=== PATIENT | female | born 1990 | race Caucasian/White ===

== ENCOUNTER 2021-07-13 11:05 | Emergency (ER) | payer OTHER ==
[~2021-07-13] VITALS: Ht 170.2 cm; Wt 72.6 kg
[~2021-07-13 11:05] MED LIST: CELEXA20 MG PO; CLEOCIN HCL150 MG PO; GENTAMICIN SU3 MG/ML OPHTHALMIC; IBUPROFEN 800800 MG PO; NYQUIL D COLD295 ML PO; TRAZODONE HCL50 MG PO; TUSSIONEX PENN473 ML PO; ZPAK PO
[2021-07-13] MEDS ORDERED: AMOXICILLIN 50500 M1 PO (12:00)
[2021-07-13] MEDS ORDERED: HYDROCODON-ACE1 EAC7 PO (12:00)
[2021-07-13 12:02] VITALS: BP 119/85
== END 2021-07-13 12:02 | disposition home or self-care (01) ==
LOC: ER 11:05
DX: K04.7 Periapical abscess without sinus (principal); Z98.890 Other specified postprocedural states; Z79.891 Long term (current) use of opiate analgesic; Z79.899 Other long term (current) drug therapy